=== PATIENT | female | born 1955 | race Caucasian/White ===

== ENCOUNTER 2020-04-06 15:32 | Outpatient (REF) | payer OTHER, SELFPAY ==
--- NOTE | 2020-04-06 | MM_ITS ---
EXAMINATION: MM SCREENING DIGITAL BREAST TOMOSYNTHESIS, BILATERAL CLINICAL INFORMATION: Screening. Asymptomatic. The lifetime risk of breast cancer based on the Tyrer-Cuzick Model is 4.8%. COMPARISON: Mammography: May 2018 and studies dating back to July 05, 2008 TECHNIQUE: Digital breast tomosynthesis is performed in both the craniocaudal and mediolateral oblique views along with computer-aided detection (CAD). Synthesized 2D images are generated from the tomosynthesis. FINDINGS: There are scattered areas of fibroglandular density (ACR BI-RADS breast composition Category b). There are no significant masses, abnormal calcifications, or other abnormalities. MM/MM tomosynthesis screening BI IMPRESSION: There are no significant changes from prior study. ASSESSMENT: BI-RADS 1: Negative RECOMMENDATION: Routine annual mammography screening. This patient's information was entered into a reminder system with a target due date for their next mammogram.
== END 2020-04-06 15:33 | disposition home or self-care (01) ==
LOC: HO.MAMMO 15:32
PROVIDERS: PCP Internal Medicine; Visit Provider Internal Medicine
DX: Z12.31 Encounter for screening mammogram for malignant neoplasm of breast (principal)
CPT/HCPCS: 77063; 77067

== ENCOUNTER 2020-08-21 09:39 | Outpatient (REF) | payer OTHER, SELFPAY ==
[2020-08-21 11:12] LABS: Hematocrit 38.4 % (37-47); Hemoglobin 12.2 g/dl (12.0-16.0); Mean Corpuscular HGB Conc 31.8 g/dl (31.0-35.0); Mean Corpuscular Hemoglobin 27.9 pg (27.0-33.0); Mean Corpuscular Volume 87.9 fL (80-98); Mean Platelet Volume 10.1 fL (9.4-12.3); Platelet Count 198 X10*3/uL (160-400); Red Blood Count 4.37 X10*6/uL (4.20-5.50); Red Cell Distribution Width 13.1 % (11.0-16.0); White Blood Count 5.5 X10*3/uL (4.8-10.8)
[2020-08-21 11:13] LABS: Glucose Urine UA NEG (NEG); Leukocyte Esterase Urine NEG (NEG); Nitrite Urine NEG (NEG); PH 5.5 (5.0-8.0); Specific Gravity - Urine >= 1.030 (1.005-1.025); Urine Blood NEG (NEG); Urine Ketones NEG (NEG); Urine Protein NEG (NEG-TRACE)
[2020-08-21 11:15] LABS: Appearance Urine CLEAR; Color Urine YELLOW
[2020-08-21 11:33] LABS: Calcium Oxalate Crystals Urine TRACE /LPF; RBC Urine 0 /HPF (0); Squamous Epithelial Cell Urine TRACE /LPF; WBC Urine 0 /HPF (0-4)
[2020-08-21 11:39] LABS: Estimated Average Glucose 148 mg/dL; Hemoglobin A1c % 6.8 %
[2020-08-21 12:09] LABS: Alanine Aminotransferase 26 U/L (0-31); Albumin Level 4.7 g/dL (3.5-5.0); Alkaline Phosphatase 60 U/L (39-117); Anion Gap 13 (12-20); Aspartate Amino Transferase 21 U/L (5-31); Bilirubin Total 0.3 mg/dL (0.0-1.0); Blood Urea Nitrogen 21 mg/dL (9-16); Calcium 9.6 mg/dL (8.4-10.2); Carbon Dioxide 28 mmol/L (22-29); Chloride 104 mmol/L (96-108); Cholesterol 261 mg/dL; Estimated Glomerular Filt Rate > 60; Glucose Fasting 144 mg/dL (60-99); HDL Cholesterol 46 mg/dL; LDL Cholesterol Calculated 175 mg/dl; Potassium 4.1 mmol/L (3.3-5.1); Sodium 141 mmol/L (135-145); TSH reflex Free T4 2.75 uIU/mL (0.32-4.0); Total Protein 7.2 g/dL (6.5-8.0); Triglycerides 203 mg/dL
[2020-08-21 12:15] LABS: Creatinine Urine 128.96 mg/dL; Microalbum/Creatinine Ratio Ur 11.6 ug/mg cr
== END 2020-08-21 09:40 | disposition home or self-care (01) ==
LOC: HO.HMGCLDS 09:39
PROVIDERS: PCP Internal Medicine; Visit Provider Internal Medicine
DX: E11.9 Type 2 diabetes mellitus without complications (principal); E78.5 Hyperlipidemia, unspecified
CPT/HCPCS: 36415; 80053; 80061; 81001; 82043; 83036; 84443; 85027

== ENCOUNTER 2021-04-09 13:29 | Outpatient (REF) | payer MEDICARE, SELFPAY ==
--- NOTE | ~2021-04-09 | MM_ITS ---
EXAMINATION: MM SCREENING DIGITAL BREAST TOMOSYNTHESIS, BILATERAL CLINICAL INFORMATION: Screening. Asymptomatic. The lifetime risk of breast cancer based on the Tyrer-Cuzick Model is 4%. COMPARISON: Mammography: 04/06/2020, 06/02/2018, 03/30/2015 TECHNIQUE: Digital breast tomosynthesis is performed in both the craniocaudal and mediolateral oblique views along with computer-aided detection (CAD). Synthesized 2D images are generated from the tomosynthesis. FINDINGS: There are scattered areas of fibroglandular density (ACR BI-RADS breast composition Category b). There are no significant masses, abnormal calcifications, or other abnormalities. Parenchymal pattern is similar to prior exams. No developing density. Skin contours are smooth. No significant changes. MM/MM tomosynthesis screening BI IMPRESSION: No mammographic evidence of malignancy. ASSESSMENT: BI-RADS 1: Negative RECOMMENDATION: Routine annual mammography screening. This patient's information was entered into a reminder system with a target due date for their next mammogram.
== END 2021-04-09 13:30 | disposition home or self-care (01) ==
LOC: HO.MAMMO 13:29
PROVIDERS: Visit Provider Internal Medicine
DX: Z12.31 Encounter for screening mammogram for malignant neoplasm of breast (principal)
CPT/HCPCS: 77063; 77067

== ENCOUNTER 2022-09-19 14:20 | Outpatient (REF) | payer MEDICARE, SELFPAY ==
--- NOTE | ~2022-09-19 | MM_ITS ---
EXAMINATION: MM SCREENING DIGITAL BREAST TOMOSYNTHESIS, BILATERAL CLINICAL INFORMATION: Screening. Asymptomatic. The lifetime risk of breast cancer based on the Tyrer-Cuzick Model is 3%. COMPARISON: Mammography: 04/09/2021, 04/06/2020, 06/02/2018 TECHNIQUE: Digital breast tomosynthesis is performed in both the craniocaudal and mediolateral oblique views along with computer-aided detection (CAD). Synthesized 2D images are generated from the tomosynthesis. FINDINGS: There are scattered areas of fibroglandular density (ACR BI-RADS breast composition Category b). There is nodular asymmetric density mid upper left breast on MLO view, suspect some contribution from summation artifact. Patient will be recalled for additional imaging. Remainder of the breasts is similar to prior studies. Tiny nodular asymmetry central left breast is similar to prior exams. There is no architectural abnormality. No abnormal calcifications. Some scattered ductal secretory calcifications in each breast is again demonstrated. The axilla and skin contours are unremarkable. MM/MM tomosynthesis screening BI IMPRESSION: Left: -Nodular asymmetric density mid upper breast on MLO view, suspect some contribution from summation artifact. Right: -No mammographic evidence of malignancy. ASSESSMENT: BI-RADS 0: Incomplete - Need Additional Imaging Evaluation RECOMMENDATION: 1. Additional views left breast (spot MLO, standard ML). 2. Targeted ultrasound if warranted after review of the additional views. 3. Radiology department staff will contact the patient for additional imaging. This patient's information was entered into a reminder system with a target due date for their next mammogram.
== END 2022-09-19 14:21 | disposition home or self-care (01) ==
LOC: HO.MAMMO 14:20
PROVIDERS: PCP Internal Medicine; Visit Provider Internal Medicine
DX: Z12.31 Encounter for screening mammogram for malignant neoplasm of breast (principal)
CPT/HCPCS: 77063; 77067

== ENCOUNTER 2022-10-23 12:42 | Outpatient (REF) | payer MEDICARE, SELFPAY ==
--- NOTE | ~2022-10-23 | MM_ITS ---
EXAMINATION: MM DIAGNOSTIC DIGITAL BREAST TOMOSYNTHESIS, LEFT CLINICAL INFORMATION: Recall from screening for nodular asymmetric density mid upper left breast on MLO view likely contribution from summation artifact. COMPARISON: Prior mammography exams including most recent 09/19/2022. TECHNIQUE: Digital breast tomosynthesis is performed. 2D images are generated from the tomosynthesis. The following views are obtained: Spot MLO, standard ML. FINDINGS: There are scattered areas of fibroglandular density (ACR BI-RADS breast composition Category b). Additional views show fibroglandular densities similar to prior studies. No interval mass or architectural abnormality or developing density. Results are discussed with the patient at time of visit. MM/MM tomosynthesis added views L IMPRESSION: No significant changes from prior studies. ASSESSMENT: BI-RADS 1: Negative RECOMMENDATION: Routine annual mammography screening. This patient's information was entered into a reminder system with a target due date for their next mammogram.
== END 2022-10-23 12:43 | disposition home or self-care (01) ==
LOC: HO.MAMMO 12:42
PROVIDERS: PCP Internal Medicine; Visit Provider Internal Medicine
DX: R92.2 Inconclusive mammogram (principal)
CPT/HCPCS: 77061; 77065

== ENCOUNTER 2022-11-06 09:50 | Outpatient (REF) | payer MEDICARE, SELFPAY ==
[2022-11-06 11:22] LABS: MANUAL DIFF FLAG NO
[2022-11-06 11:38] LABS: Basophils Absolute Auto 0.1 X10*3/uL (0.0-0.2); Basophils Percent Auto 1.2 % (0-2); Eosinophils Absolute Auto 0.3 X10*3/uL (0.0-0.4); Eosinophils Percent Auto 5.1 % (0-4); Hematocrit 37.7 % (37.0-47.0); Hemoglobin 12.2 g/dl (12.0-16.0); Imm Gran Abs Auto 0.01 X10*3/uL (0.00-0.03); Imm Gran Pct Auto 0.2 % (0.0-0.4); Lymphocytes Absolute Auto 2.1 X10*3/uL (1.2-4.9); Lymphocytes Percent Auto 40.9 % (20-40); Mean Corpuscular HGB Conc 32.4 g/dl (31.0-35.0); Mean Corpuscular Hemoglobin 28.2 pg (27.0-33.0); Mean Corpuscular Volume 87.1 fL (80.0-98.0); Mean Platelet Volume 10.4 fL (9.4-12.3); Monocytes Absolute Auto 0.4 X10*3/uL (0.1-1.2); Monocytes Percent Auto 8.3 % (2-11); Neutrophils Absolute Auto 2.2 x10*3/uL (2.0-8.3); Neutrophils Percent Auto 44.3 % (45-73); Platelet Count 217 X10*3/uL (160-400); Red Blood Count 4.33 X10*6/uL (4.20-5.50); Red Cell Distribution Width 13.1 % (11.0-16.0); White Blood Count 5.1 X10*3/uL (4.8-10.8)
[2022-11-06 11:52] LABS: Estimated Average Glucose 134 mg/dL; Hemoglobin A1C 152.5559 umol/L; Hemoglobin A1c % 6.3 %
[2022-11-06 12:05] LABS: Alanine Aminotransferase 15 U/L (0-31); Albumin Level 4.4 g/dL (3.5-5.0); Alkaline Phosphatase 57 U/L (39-117); Anion Gap 9 (12-20); Aspartate Amino Transferase 18 U/L (5-31); Bilirubin Total 0.6 mg/dL (0.0-1.0); Blood Urea Nitrogen 14 mg/dL (9-16); Calcium 9.8 mg/dL (8.4-10.2); Carbon Dioxide 30 mmol/L (22-29); Chloride 105 mmol/L (96-108); Cholesterol 224 mg/dL; Estimated Glomerular Filt Rate > 60; Glucose Fasting 121 mg/dL (60-99); HDL Cholesterol 39 mg/dL; LDL Cholesterol Calculated 156 mg/dl; Potassium 4.4 mmol/L (3.3-5.1); Sodium 140 mmol/L (135-145); Total Protein 7.3 g/dL (6.5-8.0); Triglycerides 145 mg/dL
[2022-11-06 12:52] LABS: Creatinine Urine 189.48 mg/dL; Microalbum/Creatinine Ratio Ur 7.3 ug/mg cr
== END 2022-11-06 09:51 | disposition home or self-care (01) ==
LOC: HO.HMGCLDS 09:50
PROVIDERS: PCP Internal Medicine; Visit Provider Internal Medicine
DX: E11.9 Type 2 diabetes mellitus without complications (principal); E78.5 Hyperlipidemia, unspecified
CPT/HCPCS: 36415; 80053; 80061; 82043; 83036; 84443; 85025

== ENCOUNTER 2023-02-24 12:18 | Outpatient (AMB) | payer MEDICARE, SELFPAY ==
[2023-02-24 12:28] VITALS: BP 124/72; PULSE 77; O2SAT 98; BMI 29.4
--- NOTE | 2023-02-24 12:28 | A.OFFPC_ITS ---
Vital Signs 02/24/23 12:28 Height 5 ft 2.2 in Weight 162 lb BMI 29.4 BP 124/72 Blood Pressure Location Lt brachial Position Sitting Pulse 77 Pulse Source Pulse Oximeter Pulse Oximetry (%) 98 Oxygen Delivery Method Room Air Intake Visit Reasons: 4 month follow up Intake Note: Pt is here today for 4 months follow up visit. Allergies atorvastatin Adverse Reaction (Unknown, Verified 02/24/23 12:33) Myalgia rosuvastatin [Crestor] Adverse Reaction (Unknown, Verified 02/24/23 12:33) Myalgia Medication List - Last Reconciled 02/24/23 by Amber Fabian MD blood sugar diagnostic (FreeStyle Lite Strips) test blood sugar once a day lancets (OneTouch Delica Lancets) test blood sugar once a day metformin 1,000 mg (2 x 500 mg) PO BID OneTouch Ultra Test (blood sugar diagnostic) test blood sugar once a day NS OneTouch Ultra2 Meter (blood-glucose meter) As directed to test blood sugars NS rosuvastatin (Crestor) 10 mg PO DAILY Tobacco use date assessed: 02/24/23 Dental Screening Dental Screen Date: 02/24/23 Did you have a dental visit in the last 12 months?: Yes Did you have a dental problem in the last 6 months where you did not have access to dental care?: No Was dental information given to patient?: Patient has dentist HPI 4 month follow up HPI Details Patient presents for the follow-up of type 2 diabetes and hyperlipidemia. Patient reports fasting blood glucose improved since she started taking fiber supplement [facility] Medical History (Updated 02/24/23 @ 13:07 by Amber Fabian MD) Mammogram normal Annual physical exam Anxiety Hyperlipidemia Type 2 diabetes mellitus Surgical History S/P hysterectomy H/O colonoscopy Family History Father No problems noted. Mother No problems noted. Social History Housing: House Patient Tobacco Use Status: Never used Tobacco e-Cigarette/Vaping Use: Never Used Current occupational status: retired Cognitive needs: No Hearing needs: No Vision needs: Yes Questionnaire Thrive Questionnaire Date Thrive assessed: 11/06/22 GISSEL-7 AMB Questionnaire GISSEL-7 Date GISSEL - 7 assessed: 11/06/22 Source: Developed by Drs. Malik Kerr, Gwendolyn Aguero, Randy Lewis and colleagues, with an educational nadine from [employer]. Review of Systems Const All systems reviewed & are unremarkable except as noted in HPI and below Reports no additional complaints Eyes Reports no additional complaints Card Reports no additional complaints Resp Reports no additional complaints GI Reports no additional complaints Physical exam (Primary Care) Vital Signs: Last Vital Signs Pulse 77 02/24/23 12:28 BP 124/72 02/24/23 12:28 Pulse Ox 98 02/24/23 12:28 Oxygen Delivery Method Room Air 02/24/23 12:28 BMI result Body Mass Index 29.4 Tobacco/Smoking Status: Tobacco use Status Tobacco use date assessed 02/24/23 02/24/23 12:34 Patient Tobacco Use Status Never used Tobacco 02/24/23 12:34 e-Cigarette/Vaping Use Never Used 02/24/23 12:34 Thrive Assessment: Date of Thrive Assessment Date Thrive assessed 11/06/22 02/24/23 12:34 Const General: no acute distress Neck Neck: Yes supple Resp Effort & Inspection: normal respiratory effort Auscultation: clear to auscultation bilaterally Cardio Rate: regular rate Rhythm: regular rhythm Heart sounds: S1 normal heart sound present and S2 normal heart sound present GI Inspection: Yes normal to inspection Assessment and Plan Assessment & Plan (1) Type 2 diabetes mellitus: Comment: A1C less than 7 Code(s): E11.9 - Type 2 diabetes mellitus without complications Plan: check labs today, cont ADA diet, exercise (2) Hyperlipidemia: Code(s): E78.5 - Hyperlipidemia, unspecified Plan: cont statin (3) Annual physical exam: Code(s): Z00.00 - Encounter for general adult medical examination without abnormal findings (4) Mammogram normal: Comment: [facility] 2022 Orders: Orders Comprehensive [place]. Panel Fast 4 Months E11.9 - Type 2 diabetes mellitus without complications, E78.5 - Hyperlipidemia, unspecified, Z00.00 - Encounter for general adult medical examination without abnormal findings Complete Blood Count Auto Diff 4 Months E11.9 - Type 2 diabetes mellitus without complications, E78.5 - Hyperlipidemia, unspecified, Z00.00 - Encounter for general adult medical examination without abnormal findings Hemoglobin A1c 4 Months E11.9 - Type 2 diabetes mellitus without complications, E78.5 - Hyperlipidemia, unspecified, Z00.00 - Encounter for general adult medical examination without abnormal findings Lipid Panel 4 Months E11.9 - Type 2 diabetes mellitus without complications, E78.5 - Hyperlipidemia, unspecified, Z00.00 - Encounter for general adult medical examination without abnormal findings Microalbumin, Random (w Creat) 4 Months E11.9 - Type 2 diabetes mellitus without complications, E78.5 - Hyperlipidemia, unspecified, Z00.00 - Encounter for general adult medical examination without abnormal findings Coding Level of Care Code Est Pt Level 3 (59821) Diagnoses Type 2 diabetes mellitus E11.9 Hyperlipidemia E78.5 Annual physical exam Z00.00 Mammogram normal
== END 2023-02-24 13:01 | disposition home or self-care (01) ==
PROVIDERS: PCP Internal Medicine; Visit Provider Internal Medicine
DX: E11.9 Type 2 diabetes mellitus without complications (principal); E78.5 Hyperlipidemia, unspecified; Z00.00 Encounter for general adult medical examination without abnormal findings
CPT/HCPCS: 99213

== ENCOUNTER 2023-02-24 13:05 | Outpatient (REF) | payer MEDICARE, SELFPAY ==
[2023-02-24 16:12] LABS: Estimated Average Glucose 140 mg/dL; Hemoglobin A1c % 6.5 % (<6.0)
[2023-02-24 16:17] LABS: Alanine Aminotransferase 19 U/L (0-31); Albumin Level 4.5 g/dL (3.5-5.0); Alkaline Phosphatase 64 U/L (39-117); Anion Gap 14 (12-20); Aspartate Amino Transferase 20 U/L (5-31); Bilirubin Total 0.4 mg/dL (0.0-1.0); Blood Urea Nitrogen 9 mg/dL (9-16); Calcium 9.6 mg/dL (8.4-10.2); Carbon Dioxide 26 mmol/L (22-29); Chloride 103 mmol/L (96-108); Cholesterol 197 mg/dL (<200); Estimated Glomerular Filt Rate > 60; Glucose Fasting 101 mg/dL (60-99); HDL Cholesterol 42 mg/dL (>40); LDL Cholesterol Calculated 129 mg/dL (<100); Potassium 3.9 mmol/L (3.3-5.1); Sodium 139 mmol/L (135-145); Total Protein 7.4 g/dL (6.5-8.0); Triglycerides 132 mg/dL (<150)
[2023-02-24 16:57] LABS: Creatinine Urine 36.16 mg/dL; Microalbumin Urine < 5.0 mg/L
== END 2023-02-24 13:06 | disposition home or self-care (01) ==
LOC: HO.HMGCLDS 13:05
PROVIDERS: PCP Internal Medicine; Visit Provider Internal Medicine
DX: E11.9 Type 2 diabetes mellitus without complications (principal); E78.5 Hyperlipidemia, unspecified
CPT/HCPCS: 36415; 80053; 80061; 82043; 82570; 83036

== ENCOUNTER 2023-06-25 09:39 | Outpatient (REF) | payer MEDICARE, SELFPAY ==
[2023-06-25 11:29] LABS: MANUAL DIFF FLAG NO
[2023-06-25 11:51] LABS: Eosinophils Absolute Auto 0.1 X10*3/uL (0.0-0.4); Eosinophils Percent Auto 3.6 % (0-4); Hematocrit 36.9 % (37.0-47.0); Hemoglobin 11.9 g/dl (12.0-16.0); Imm Gran Abs Auto 0.01 X10*3/uL (0.00-0.03); Imm Gran Pct Auto 0.3 % (0.0-0.4); Lymphocytes Absolute Auto 1.5 X10*3/uL (1.2-4.9); Lymphocytes Percent Auto 37.8 % (20-40); Mean Corpuscular HGB Conc 32.2 g/dl (31.0-35.0); Mean Corpuscular Hemoglobin 27.8 pg (27.0-33.0); Mean Corpuscular Volume 86.2 fL (80.0-98.0); Mean Platelet Volume 10.2 fL (9.4-12.3); Monocytes Absolute Auto 0.3 X10*3/uL (0.1-1.2); Monocytes Percent Auto 8.4 % (2-11); Neutrophils Absolute Auto 1.9 x10*3/uL (2.0-8.3); Neutrophils Percent Auto 48.9 % (45-73); Platelet Count 197 X10*3/uL (160-400); Red Blood Count 4.28 X10*6/uL (4.20-5.50); Red Cell Distribution Width 13.5 % (11.0-16.0); White Blood Count 3.9 X10*3/uL (4.8-10.8)
[2023-06-25 12:02] LABS: Estimated Average Glucose 143 mg/dL; Hemoglobin A1C 149.8671 umol/L; Hemoglobin A1c % 6.6 % (<6.0)
[2023-06-25 12:22] LABS: Alanine Aminotransferase 17 U/L (0-31); Albumin Level 4.3 g/dL (3.5-5.0); Alkaline Phosphatase 59 U/L (39-117); Anion Gap 11 (12-20); Aspartate Amino Transferase 17 U/L (5-31); Bilirubin Total 0.4 mg/dL (0.0-1.0); Blood Urea Nitrogen 12 mg/dL (9-16); Calcium 9.3 mg/dL (8.4-10.2); Carbon Dioxide 28 mmol/L (22-29); Chloride 105 mmol/L (96-108); Cholesterol 241 mg/dL (<200); Estimated Glomerular Filt Rate > 60; Glucose Fasting 132 mg/dL (60-99); HDL Cholesterol 35 mg/dL (>40); LDL Cholesterol Calculated 176 mg/dL (<100); Potassium 4.3 mmol/L (3.3-5.1); Sodium 140 mmol/L (135-145); Total Protein 7.1 g/dL (6.5-8.0); Triglycerides 152 mg/dL (<150)
[2023-06-25 12:33] LABS: Creatinine Urine 144.76 mg/dL; Microalbum/Creatinine Ratio Ur 9.6 ug/mg cr (<30)
== END 2023-06-25 09:40 | disposition home or self-care (01) ==
LOC: HO.HMGCLDS 09:39
PROVIDERS: PCP Internal Medicine; Visit Provider Internal Medicine
DX: Z00.00 Encounter for general adult medical examination without abnormal findings (principal); E78.5 Hyperlipidemia, unspecified; E11.9 Type 2 diabetes mellitus without complications
CPT/HCPCS: 36415; 80053; 80061; 82043; 82570; 83036; 85025

== ENCOUNTER 2023-06-30 10:13 | Outpatient (AMB) | payer MEDICARE, SELFPAY ==
--- NOTE | 2023-06-30 10:24 | A.OFFPC_ITS ---
Vital Signs 06/30/23 10:25 Height 5 ft 2.2 in Weight 164 lb BMI 29.8 BP 132/76 Blood Pressure Location Lt brachial Position Sitting Pulse 84 Pulse Source Pulse Oximeter Pulse Oximetry (%) 96 Oxygen Delivery Method Room Air Intake Visit Reasons: 4 month follow up Intake Note: Pt is here today for 4 months follow up visit. Allergies atorvastatin Adverse Reaction (Unknown, Verified 06/30/23 10:25) Myalgia rosuvastatin [Crestor] Adverse Reaction (Unknown, Verified 06/30/23 10:25) Myalgia Medication List - Last Reconciled 06/30/23 by Amber Fabian MD blood sugar diagnostic (FreeStyle Lite Strips) test blood sugar once a day empagliflozin (Jardiance) 10 mg PO DAILY lancets (OneTouch Delica Lancets) test blood sugar once a day metformin 1,000 mg (2 x 500 mg) PO BID OneTouch Ultra Test (blood sugar diagnostic) test blood sugar once a day NS OneTouch Ultra2 Meter (blood-glucose meter) As directed to test blood sugars NS rosuvastatin (Crestor) 10 mg PO DAILY Tobacco use date assessed: 06/30/23 Fall risk assessment: No Falls in past year Last assessed Fall Risk: 06/30/23 Dental Screening Dental Screen Date: 06/30/23 Did you have a dental visit in the last 12 months?: Yes Did you have a dental problem in the last 6 months where you did not have access to dental care?: No Was dental information given to patient?: Patient has dentist HPI 4 month follow up HPI Details Pt presents for DM 2 and hyperlipid. Pt has not been taking Crestor, because of bodyaches. [facility] Medical History (Updated 06/30/23 @ 11:08 by Amber Fabian MD) Mammogram normal Annual physical exam Anxiety Hyperlipidemia Type 2 diabetes mellitus Surgical History S/P hysterectomy H/O colonoscopy Family History Father No problems noted. Mother No problems noted. Social History Housing: House Patient Tobacco Use Status: Never used Tobacco e-Cigarette/Vaping Use: Never Used Current occupational status: retired Cognitive needs: No Hearing needs: No Vision needs: Yes Questionnaire PHQ-9 Over the last 2 weeks, how often have you been bothered by any of the following problems? 1. Little interest or pleasure in doing things: not at all 2. Feeling down, depressed, or hopeless: not at all 3. Trouble falling or staying asleep, or sleeping too much: not at all 4. Feeling tired or having little energy: not at all 5. Poor appetite or overeating: not at all 6. Feeling bad about yourself - or that you are a failure or have let yourself or your family down: not at all 7. Trouble concentrating on things, such as reading the newspaper or watching television: not at all 8. Moving or speaking so slowly that other people could have noticed. Or the opposite - being so fidgety or restless that you have been moving around a lot more than usual: not at all 9. Thoughts that you would be better off or of hurting yourself in some way: not at all Total score: 0 Depression Screening Interpretation: Negative Depression Screening Done: Yes Source: Developed by Drs. Malik Kerr, Gwendolyn Aguero, Randy Lewis and colleagues, with an educational nadine from [employer]. Thrive Questionnaire Date Thrive assessed: 06/30/23 I am a: Patient What is your living situation today?: I have a steady place to live Within the past 12 months, did the food you bought not last and you didn't have the money to get more?: Never true Within the past 12 months, did you worry whether your food would run out before you got money to buy more?: Never true Do you have trouble paying for medicines?: No Do you have trouble getting transportation to medical appointments?: No Do you have trouble paying your heating and electricity bill?: No Do you have trouble taking care of your child, family member or friend?: No Are you currently unemployed and looking for a job?: No Are you interested in more education?: No Please select the resources that you would like help with: None Currently or been in a relationship where the following occur: no concerns reported THRIVE Score: 0 AUDIT C Alcohol Use Questionnaire (AUDIT-C) 1. How often do you have a drink containing alcohol?: Never 3. How often do you have six or more drinks on one occasion?: Never Total Score: 0 GISSEL-7 AMB Questionnaire GISSEL-7 Date GISSEL - 7 assessed: 06/30/23 Feeling nervous, anxious, or on edge: 0 = Not at all Not being able to stop or control worryin = Not at all Worrying too much about different things: 0 = Not at all Trouble relaxin = Not at all Being so restless that it is hard to sit still: 0 = Not at all Becoming easily annoyed or irritable: 0 = Not at all Feeling afraid as if something awful might happen: 0 = Not at all Total GISSEL-7 score (0-4 normal; 5-9 mild; 10-14 moderate; 15-21 severe): 0 Source: Developed by Drs. Malik Kerr, Gwendolyn Aguero, Randy Lewis and colleagues, with an educational nadine from [employer]. Review of Systems Const All systems reviewed & are unremarkable except as noted in HPI and below Reports no additional complaints Eyes Reports no additional complaints ENT Reports no additional complaints Card Reports no additional complaints Resp Reports no additional complaints GI Reports no additional complaints Reports no additional complaints Physical exam (Primary Care) Vital Signs: Last Vital Signs Pulse 84 06/30/23 10:25 BP 132/76 06/30/23 10:25 Pulse Ox 96 06/30/23 10:25 Oxygen Delivery Method Room Air 06/30/23 10:25 BMI result Body Mass Index 29.8 Tobacco/Smoking Status: Tobacco use Status Tobacco use date assessed 06/30/23 06/30/23 10:31 Patient Tobacco Use Status Never used Tobacco 06/30/23 10:31 e-Cigarette/Vaping Use Never Used 06/30/23 10:25 PHQ-9: PHQ-9 Score PHQ-9: Total score 0 06/30/23 10:31 Depression Screening Interpretation: Negative Thrive Assessment: Date of Thrive Assessment Date Thrive assessed 06/30/23 06/30/23 10:31 Currently or been in a relationship where the following occur: no concerns reported HENMT Head: Yes normal to inspection Ears: hearing grossly normal bilaterally Face and sinus: Yes normal facial exam Neck Neck: Yes no lymphadenopathy and Yes supple Resp Effort & Inspection: normal respiratory effort Auscultation: clear to auscultation bilaterally Cardio Rhythm: regular rhythm Heart sounds: S1 normal heart sound present and S2 normal heart sound present GI Inspection: Yes normal to inspection Palpation (GI): Soft to palpation Percussion: Yes normal to percussion Auscultation: normal bowel sounds Assessment and Plan Assessment & Plan (1) Type 2 diabetes mellitus: Comment: A1C less than 7 Code(s): E11.9 - Type 2 diabetes mellitus without complications Plan: A1c is 6.6, ADA diet increase exercise weight loss discussed with the patient. Jardiance 10 mg will be added to metformin. Follow-up in 3 months with a fasting labs before (2) Hyperlipidemia: Code(s): E78.5 - Hyperlipidemia, unspecified Plan: Patient was advised to restart statin was CO Q10 if she has persistent body aches . Repatha or Praluent will be tried (3) Elevated blood pressure reading: Code(s): R03.0 - Elevated blood-pressure reading, without diagnosis of hypertension Plan: Low-sodium diet increase exercise weight loss discussed with the patient. Follow-up in 3 months to monitor blood pressure Orders: Orders Hemoglobin A1c 3 Months E11.9 - Type 2 diabetes mellitus without complications, E78.5 - Hyperlipidemia, unspecified Lipid Panel 3 Months E11.9 - Type 2 diabetes mellitus without complications, E78.5 - Hyperlipidemia, unspecified TSH reflex Free T4 3 Months E11.9 - Type 2 diabetes mellitus without complications, E78.5 - Hyperlipidemia, unspecified Comprehensive [place]. Panel Fast 3 Months E11.9 - Type 2 diabetes mellitus without complications, E78.5 - Hyperlipidemia, unspecified Microalbumin, Random (w Creat) 3 Months E11.9 - Type 2 diabetes mellitus without complications, E78.5 - Hyperlipidemia, unspecified Referrals Gastroenterology Referral Z00.00 - Encounter for general adult medical examination without abnormal findings Medications: New empagliflozin (Jardiance) 10 mg PO DAILY 90 tabs 2RF Coding Level of Care Code Est Pt Level 4 (15488) Diagnoses Type 2 diabetes mellitus E11.9 Hyperlipidemia E78.5 Elevated blood pressure reading R03.0
[2023-06-30 10:25] VITALS: BP 132/76; PULSE 84; O2SAT 96; BMI 29.8
== END 2023-06-30 11:05 | disposition home or self-care (01) ==
PROVIDERS: PCP Internal Medicine; Visit Provider Internal Medicine
DX: E11.9 Type 2 diabetes mellitus without complications (principal); E78.5 Hyperlipidemia, unspecified; R03.0 Elevated blood-pressure reading, without diagnosis of hypertension
CPT/HCPCS: 99214

== ENCOUNTER 2023-11-20 09:07 | Outpatient (REF) | payer MEDICARE, SELFPAY ==
[2023-11-20 11:57] LABS: Estimated Average Glucose 137 mg/dL; Hemoglobin A1c % 6.4 % (<6.0)
[2023-11-20 12:11] LABS: Alanine Aminotransferase 14 U/L (0-31); Albumin Level 4.3 g/dL (3.5-5.0); Alkaline Phosphatase 62 U/L (39-117); Anion Gap 13 (12-20); Aspartate Amino Transferase 16 U/L (5-31); Bilirubin Total 0.4 mg/dL (0.0-1.0); Blood Urea Nitrogen 11 mg/dL (9-16); Calcium 9.7 mg/dL (8.4-10.2); Carbon Dioxide 27 mmol/L (22-29); Chloride 105 mmol/L (96-108); Cholesterol 232 mg/dL (<200); Estimated Glomerular Filt Rate > 60; Glucose Fasting 108 mg/dL (60-99); HDL Cholesterol 39 mg/dL (>40); LDL Cholesterol Calculated 161 mg/dL (<100); Potassium 4.4 mmol/L (3.3-5.1); Sodium 141 mmol/L (135-145); Total Protein 7.1 g/dL (6.5-8.0); Triglycerides 162 mg/dL (<150)
[2023-11-20 12:32] LABS: TSH reflex Free T4 3.06 uIU/mL (0.32-4.0)
[2023-11-20 12:37] LABS: Creatinine Urine 111.44 mg/dL; Microalbum/Creatinine Ratio Ur 6.2 ug/mg cr (<30)
== END 2023-11-20 09:08 | disposition home or self-care (01) ==
LOC: HO.HMGCLDS 09:07
PROVIDERS: PCP Internal Medicine; Visit Provider Internal Medicine
DX: E11.9 Type 2 diabetes mellitus without complications (principal); E78.5 Hyperlipidemia, unspecified
CPT/HCPCS: 36415; 80053; 80061; 82043; 82570; 83036; 84443

== ENCOUNTER 2023-11-25 10:56 | Outpatient (AMB) | payer MEDICARE, SELFPAY ==
[2023-11-25 11:12] VITALS: BP 116/70; PULSE 74; O2SAT 97; BMI 28.9
--- NOTE | 2023-11-25 11:12 | A.OFFPC_ITS ---
Vital Signs 11/25/23 11:12 Height 5 ft 2.2 in Weight 159 lb BMI 28.9 BP 116/70 Blood Pressure Location Rt brachial Position Sitting Pulse 74 Pulse Source Pulse Oximeter Pulse Oximetry (%) 97 Oxygen Delivery Method Room Air Intake Visit Reasons: Annual PE Intake Note: pt is here for annual PE. Mammogram 10/23/22 Allergies atorvastatin Adverse Reaction (Unknown, Verified 11/25/23 11:41) Myalgia rosuvastatin [Crestor] Adverse Reaction (Unknown, Verified 11/25/23 11:41) Myalgia Medication List - Last Reconciled 11/25/23 by Amber Fabian MD blood sugar diagnostic (FreeStyle Lite Strips) test blood sugar once a day empagliflozin (Jardiance) 10 mg PO DAILY lancets (OneTouch Delica Lancets) test blood sugar once a day metformin 1,000 mg (2 x 500 mg) PO BID OneTouch Ultra Test (blood sugar diagnostic) test blood sugar once a day NS OneTouch Ultra2 Meter (blood-glucose meter) As directed to test blood sugars NS Tobacco use date assessed: 11/25/23 Fall risk assessment: No Falls in past year Dental Screening Dental Screen Date: 11/25/23 Did you have a dental visit in the last 12 months?: Yes Did you have a dental problem in the last 6 months where you did not have access to dental care?: No Was dental information given to patient?: Patient has dentist HPI Annual PE HPI Details Pt presents for PE. PFSH Medical History Mammogram normal Annual physical exam Anxiety Hyperlipidemia Type 2 diabetes mellitus Surgical History S/P hysterectomy H/O colonoscopy Family History Father No problems noted. Mother No problems noted. Social History Housing: House Patient Tobacco Use Status: Never used Tobacco e-Cigarette/Vaping Use: Never Used service: No Current occupational status: retired Cognitive needs: No Hearing needs: No Vision needs: Yes Questionnaire Thrive Questionnaire Date Thrive assessed: 06/30/23 GISSEL-7 AMB Questionnaire GISSEL-7 Date GISSEL - 7 assessed: 06/30/23 Source: Developed by DrsPhyllis Kerr, Gwendolyn Aguero, Randy Lewis and colleagues, with an educational nadine from [employer]. Review of Systems Const All systems reviewed & are unremarkable except as noted in HPI and below Reports no additional complaints Eyes Reports no additional complaints ENT Reports no additional complaints Card Reports no additional complaints Resp Reports no additional complaints GI Reports no additional complaints Reports no additional complaints Musc Reports no additional complaints Physical exam (Primary Care) Vital Signs: Last Vital Signs Pulse 74 11/25/23 11:12 BP 116/70 11/25/23 11:12 Pulse Ox 97 11/25/23 11:12 Oxygen Delivery Method Room Air 11/25/23 11:12 BMI result Body Mass Index 28.9 Tobacco/Smoking Status: Tobacco use Status Tobacco use date assessed 11/25/23 11/25/23 11:41 Patient Tobacco Use Status Never used Tobacco 11/25/23 11:12 e-Cigarette/Vaping Use Never Used 11/25/23 11:12 Thrive Assessment: Date of Thrive Assessment Date Thrive assessed 06/30/23 11/25/23 11:12 Const General: no acute distress HENMT Head: Yes normal to inspection Face and sinus: Yes normal facial exam Mouth: Normal oral and palatal mucosa present Throat: Yes posterior oropharynx normal Eyes General: appearance normal, both eyes and all related structures Neck Neck: Yes supple Resp Effort & Inspection: normal respiratory effort Auscultation: clear to auscultation bilaterally Cardio Rhythm: regular rhythm Heart sounds: S1 normal heart sound present and S2 normal heart sound present GI Inspection: Yes normal to inspection Palpation (GI): Soft to palpation Percussion: Yes normal to percussion Auscultation: normal bowel sounds Assessment and Plan Assessment & Plan (1) Type 2 diabetes mellitus: Comment: A1C less than 7 Code(s): E11.9 - Type 2 diabetes mellitus without complications Plan: A1C 6.4, stable on meds, cont ADA (2) Hyperlipidemia: Comment: Intolerant to atorvastatin and crestor Code(s): E78.5 - Hyperlipidemia, unspecified Plan: Try Zetia and continue low-cholesterol diet (3) Annual physical exam: Code(s): Z00.00 - Encounter for general adult medical examination without abnormal findings Plan: Well-balanced diet regular exercise discussed with the patient Orders: Orders Vitamin B12 and Folate 4 Months D64.9 - Anemia, unspecified, E11.9 - Type 2 diabetes mellitus without complications, Z00.00 - Encounter for general adult medical examination without abnormal findings Hemoglobin A1c 4 Months D64.9 - Anemia, unspecified, E11.9 - Type 2 diabetes mellitus without complications, Z00.00 - Encounter for general adult medical examination without abnormal findings Comprehensive [place]. Panel Fast 4 Months D64.9 - Anemia, unspecified, E11.9 - Type 2 diabetes mellitus without complications, Z00.00 - Encounter for general adult medical examination without abnormal findings Lipid Panel 4 Months D64.9 - Anemia, unspecified, E11.9 - Type 2 diabetes me llitus without complications, Z00.00 - Encounter for general adult medical examination without abnormal findings Complete Blood Count Auto Diff 4 Months D64.9 - Anemia, unspecified, E11.9 - Type 2 diabetes mellitus without complications, Z00.00 - Encounter for general adult medical examination without abnormal findings Microalbumin, Random (w Creat) 4 Months D64.9 - Anemia, unspecified, E11.9 - Type 2 diabetes mellitus without complications, Z00.00 - Encounter for general adult medical examination without abnormal findings IRON PROFILE 4 Months D64.9 - Anemia, unspecified, E11.9 - Type 2 diabetes mellitus without complications, Z00.00 - Encounter for general adult medical examination without abnormal findings Medications: New ezetimibe (Zetia) 10 mg PO DAILY 90 tabs 3RF Discontinued empagliflozin (Jardiance) Discontinued Reason: Doctor's Order 10 mg PO DAILY 90 tabs 2RF Coding Level of Care Code Est Pt Prev Care >65y(58525) Diagnoses Type 2 diabetes mellitus E11.9 Hyperlipidemia E78.5 Annual physical exam Z00.00
== END 2023-11-25 12:10 | disposition home or self-care (01) ==
PROVIDERS: PCP Internal Medicine; Visit Provider Internal Medicine
DX: E11.9 Type 2 diabetes mellitus without complications (principal); E78.5 Hyperlipidemia, unspecified; Z00.00 Encounter for general adult medical examination without abnormal findings
CPT/HCPCS: 99397

== ENCOUNTER 2024-01-30 13:22 | Outpatient (REF) | payer MEDICARE, SELFPAY ==
--- NOTE | ~2024-01-30 | MM_ITS ---
EXAMINATION: MM SCREENING DIGITAL BREAST TOMOSYNTHESIS, BILATERAL CLINICAL INFORMATION: Screening. Asymptomatic. COMPARISON: Mammography: Comparison is made with available priors TECHNIQUE: Digital breast mammography with tomosynthesis is performed in both the craniocaudal and mediolateral oblique views along with computer-aided detection (CAD). FINDINGS: There are scattered areas of fibroglandular density (ACR BI-RADS breast composition Category b). There are no significant masses, abnormal calcifications, or other abnormalities. MM/MM tomosynthesis screening BI IMPRESSION: No mammographic evidence of malignancy. ASSESSMENT: BI-RADS BI-RADS 1 - Negative RECOMMENDATION: Routine annual mammography screening. 1 year F/U This examination should not preclude the clinical evaluation of a suspicious palpable abnormality. This patient's information was entered into a reminder system with a target due date for their next mammogram. Electronically signed by: Sharla Saenz DO 02/15/2024 06:41 PM EDT
== END 2024-01-30 13:23 | disposition home or self-care (01) ==
LOC: HO.MAMMO 13:22
PROVIDERS: PCP Internal Medicine; Visit Provider Internal Medicine
DX: Z12.31 Encounter for screening mammogram for malignant neoplasm of breast (principal)
CPT/HCPCS: 77063; 77067

== ENCOUNTER → 2024-01-30 13:45 | Outpatient (BNV) | payer MEDICARE, SELFPAY | PROVIDERS: PCP Internal Medicine; Visit Provider Internal Medicine | DX: Z12.31 Encounter for screening mammogram for malignant neoplasm of breast (principal) | CPT/HCPCS: 77063; 77067 ==

== ENCOUNTER 2024-02-25 08:13 | Outpatient (AMB) | payer MEDICARE, SELFPAY ==
[2024-02-25 08:25] VITALS: BP 144/74; PULSE 68; O2SAT 97; BMI 29.8
--- NOTE | 2024-02-25 08:25 | MHC.OFFVIS ---
Vital Signs 02/25/24 08:25 Height 5 ft 2 in Weight 163 lb 2.273 oz BMI 29.8 BP 144/74 H Blood Pressure Location Lt brachial Position Sitting Pulse 68 Pulse Source Pulse Oximeter Pulse Oximetry (%) 97 Oxygen Delivery Method Room Air Intake Visit Reasons: Hyperlipidemia, Consult for Colonoscopy Intake Note: Mildred presents in office today for a scheduled colo consult. CC; Notes from PCP include reference to hyperlipidemia. This is a recall colo per PCP note. Pt had previous colo with Dr. Gardiner out of [place]. Pt denies any new concerns or sx at this time. Pt reports that this is purely for recall purposes. Script Reader Required: No Allergies atorvastatin Adverse Reaction (Unknown, Verified 02/25/24 08:27) Myalgia rosuvastatin [Crestor] Adverse Reaction (Unknown, Verified 02/25/24 08:27) Myalgia HPI HPI Hyperlipidemia, Consult for Colonoscopy: Details: 68 year old? female with past medical history of diabetes, hyperlipidemia is here today for pre colonoscopy screening.? Patient was sent to us by her PCP.?? Last colonoscopy in 2011, no polyps found. Patient denies any gastrointestinal symptoms in the past or at present.? Denies any personal or family history of gastrointestinal disease, colon polyps, or CRC.? Denies history of difficulty with sedation or anesthesia in the past.? Negative for history of sleep apnea.? Denies any history of cardiac, renal, pulmonary, or hepatic disease.?? No history of infectious? diseases like hepatitis A, B, C, HIV or tuberculosis.? Patient is not on any anticoagulation [facility] Medical History Mammogram normal Annual physical exam Anxiety Hyperlipidemia Type 2 diabetes mellitus Surgical History S/P hysterectomy H/O colonoscopy Family History Father No problems noted. Mother No problems noted. Social History Housing: House Patient Tobacco Use Status: Never used Tobacco e-Cigarette/Vaping Use: Never Used service: No Current occupational status: retired Cognitive needs: No Hearing needs: No Vision needs: Yes Review of Systems Const Denies weight gain and Denies weight loss ENT Reports no additional complaints, Denies dysphagia and Denies odynophagia Card Reports no additional complaints Resp Reports no additional complaints GI Denies abdominal pain, Denies belching, Denies melena, Denies bloating, Denies change in bowel habits, Denies dysphagia, Denies excessive flatus, Denies dyspepsia, Denies heartburn, Denies diarrhea, Denies loose stools, Denies nausea, Denies odynophagia and Denies vomiting Musc Reports no additional complaints Neuro Reports no additional complaints Psych Reports no additional complaints Endo Reports no additional complaints Physical Exam Const General: healthy appearing, no acute distress and well developed Nutritional Appearance: well nourished Orientation/consciousness: patient oriented x3 Resp Effort & Inspection: normal respiratory effort, able to speak in complete sentences, no tracheal deviation and symmetric chest movement Auscultation: clear to auscultation bilaterally Cardio Rate: regular rate GI Inspection: Yes normal to inspection and No distended Palpation (GI): Soft to palpation, not firm, nontender and No hepatosplenomegaly present Auscultation: normal bowel sounds General: Yes no CVA tenderness Back/Spine/Pelvis Back: no CVA tenderness Skin General skin exam: elasticity normal, turgor normal and dry skin Neuro General: patient oriented x3 Psych Appearance: grossly normal Mental Status: mental status grossly normal Assessment & Plan Assessment & Plan (1) H/O colonoscopy: Code(s): Z98.890 - Other specified postprocedural states Category: Surgical (2) Screen for colon cancer: Code(s): Z12.11 - Encounter for screening for malignant neoplasm of colon Plan Patient denies any GI, cardiac or respiratory symptoms.? Denies any issues with anesthesia in the past.? Denies any history of sleep apnea.? No history infectious diseases in the past or present.? Not on any anticoagulation therapy.? No family or personal history of colon cancer or polyps.? Patient denies melena, hematochezia, unintentional weight loss or ribbon like stools.? Discussed at length the pre-procedure,? prep, diet & medications as well as what to expect prior, during and after the procedure.?? Stressed the importance of good bowel prep.? Recommended the use of Vaseline or Calmoseptine OTC & baby wipes with bowel movements to promote comfort.? ?Patient verbalizes understanding and agrees to plan of care.? She was given the opportunity to ask questions and all questions answered.? We will see her after the procedure.? Medications: New bisacodyl (Dulcolax (bisacodyl)) take 4 tabs at noon the day before your colonoscopy 20 mg (4 x 5 mg) PO ONCE 1 day 4 tabs 0RF Z12.11 - Encounter for screening for malignant neoplasm of colon polyethylene glycol 3350 (Miralax) As directed by gastro[facility]ology department at [facility] 238 grams PO ONCE 238 grams 0RF Z12.11 - Encounter for screening for malignant neoplasm of colon Coding Level of Care Code New Pt Level 3 (54375) Diagnoses H/O colonoscopy Z98.890 Screen for colon cancer Z12.11 Time Spent (min) 40 Comment 30 minutes spent with patient and additional 10 minutes spent reviewing her records
== END 2024-02-25 09:27 | disposition home or self-care (01) ==
PROVIDERS: PCP Internal Medicine; Visit Provider Nurse Practitioner Family
DX: Z98.890 Other specified postprocedural states (principal); Z12.11 Encounter for screening for malignant neoplasm of colon
CPT/HCPCS: 99203

== ENCOUNTER → 2024-02-25 08:13 | Outpatient (BNVA) | payer MEDICARE, SELFPAY | PROVIDERS: PCP Internal Medicine; Visit Provider Nurse Practitioner Family | DX: Z12.11 Encounter for screening for malignant neoplasm of colon (principal); Z98.890 Other specified postprocedural states | CPT/HCPCS: 99202 ==

== ENCOUNTER 2024-03-25 09:07 | Outpatient (REF) | payer MEDICARE, SELFPAY ==
[2024-03-25 13:18] LABS: MANUAL DIFF FLAG NO
[2024-03-25 13:45] LABS: Basophils Percent Auto 0.5 % (0-2); Eosinophils Absolute Auto 0.1 X10*3/uL (0.0-0.4); Eosinophils Percent Auto 3.2 % (0-4); Hematocrit 36.8 % (37.0-47.0); Hemoglobin 11.8 g/dl (12.0-16.0); Imm Gran Abs Auto 0.01 X10*3/uL (0.00-0.03); Imm Gran Pct Auto 0.3 % (0.0-0.4); Lymphocytes Absolute Auto 1.4 X10*3/uL (1.2-4.9); Lymphocytes Percent Auto 37.5 % (20-40); Mean Corpuscular HGB Conc 32.1 g/dl (31.0-35.0); Mean Corpuscular Hemoglobin 27.8 pg (27.0-33.0); Mean Corpuscular Volume 86.8 fL (80.0-98.0); Mean Platelet Volume 10.5 fL (9.4-12.3); Monocytes Absolute Auto 0.4 X10*3/uL (0.1-1.2); Monocytes Percent Auto 9.5 % (2-11); Neutrophils Absolute Auto 1.9 x10*3/uL (2.0-8.3); Platelet Count 217 X10*3/uL (160-400); Red Blood Count 4.24 X10*6/uL (4.20-5.50); Red Cell Distribution Width 13.6 % (11.0-16.0); White Blood Count 3.8 X10*3/uL (4.8-10.8)
[2024-03-25 13:46] LABS: Estimated Average Glucose 148 mg/dL; Hemoglobin A1c % 6.8 % (<6.0); Total Hemoglobin (HGBA1C) 2937.7393 umol/L
[2024-03-25 14:25] LABS: Alanine Aminotransferase 25 U/L (0-31); Albumin Level 4.2 g/dL (3.5-5.0); Alkaline Phosphatase 59 U/L (39-117); Anion Gap 11 (12-20); Aspartate Amino Transferase 24 U/L (5-31); Bilirubin Total 0.4 mg/dL (0.0-1.0); Blood Urea Nitrogen 16 mg/dL (9-16); Calcium 9.9 mg/dL (8.4-10.2); Carbon Dioxide 27 mmol/L (22-29); Chloride 107 mmol/L (96-108); Cholesterol 176 mg/dL (<200); Estimated Glomerular Filt Rate > 60; Glucose Fasting 114 mg/dL (60-99); HDL Cholesterol 43 mg/dL (>40); Iron 82 mcg/dL (30-160); LDL Cholesterol Calculated 120 mg/dL (<100); Percent Iron Saturation 28 % (15-50); Potassium 4.3 mmol/L (3.3-5.1); Sodium 141 mmol/L (135-145); Total Iron Binding Capacity 295 mcg/dL (228-428); Total Protein 6.9 g/dL (6.5-8.0); Triglycerides 69 mg/dL (<150); Unsaturated Iron Binding 213 ug/dL
[2024-03-25 14:31] LABS: Creatinine Urine 211.62 mg/dL; Microalbum/Creatinine Ratio Ur 8.5 ug/mg cr (<30)
[2024-03-25 14:33] LABS: Folate 14.8 ng/mL (> or = 4.0); Vitamin B12 309 pg/mL (200-900)
== END 2024-03-25 09:08 | disposition home or self-care (01) ==
LOC: HO.HMGCLDS 09:07
PROVIDERS: PCP Internal Medicine; Visit Provider Internal Medicine
DX: Z00.00 Encounter for general adult medical examination without abnormal findings (principal); E11.9 Type 2 diabetes mellitus without complications; D64.9 Anemia, unspecified
CPT/HCPCS: 36415; 80053; 80061; 82043; 82570; 82607; 82746; 83036; 83540; 85025

== ENCOUNTER 2024-03-29 10:38 | Outpatient (AMB) | payer MEDICARE, SELFPAY ==
--- NOTE | 2024-03-29 11:08 | A.OFFPC_ITS ---
Vital Signs 03/29/24 11:09 Height 5 ft 2 in Weight 163 lb BMI 29.8 BP 128/74 Blood Pressure Location Lt brachial Position Sitting Pulse 73 Pulse Source Pulse Oximeter Pulse Oximetry (%) 99 Oxygen Delivery Method Room Air Intake Visit Reasons: 4 month follow up Intake Note: Pt is here today for 4 months follow up visit on labs. Allergies ezetimibe [From Zetia] Adverse Reaction (Intermediate, Verified 03/29/24 12:05) arthralgia atorvastatin Adverse Reaction (Unknown, Verified 03/29/24 11:12) Myalgia rosuvastatin [Crestor] Adverse Reaction (Unknown, Verified 03/29/24 11:12) Myalgia Medication List - Last Reconciled 03/29/24 by Amber Fabian MD bisacodyl (Dulcolax (bisacodyl)) 20 mg (4 x 5 mg) PO ONCE 1 day blood sugar diagnostic (FreeStyle Lite Strips) test blood sugar once a day ezetimibe 10 mg PO DAILY lancets (OneTouch Delica Lancets) test blood sugar once a day metformin 1,000 mg (2 x 500 mg) PO BID OneTouch Ultra Test (blood sugar diagnostic) test blood sugar once a day NS OneTouch Ultra2 Meter (blood-glucose meter) As directed to test blood sugars NS polyethylene glycol 3350 (Miralax) 238 grams PO ONCE Tobacco use date assessed: 03/29/24 Dental Screening Dental Screen Date: 11/25/23 HPI 4 month follow up HPI Details Pt presents for f/u DM 2, hyperlipid. Pt did not tolerate Zetia developed severe leg pain, which resolved after patient has stopped taking med. [facility] Medical History Mammogram normal Annual physical exam Anxiety Hyperlipidemia Type 2 diabetes mellitus Surgical History S/P hysterectomy H/O colonoscopy Family History Father No problems noted. Mother No problems noted. Social History Housing: House Patient Tobacco Use Status: Never used Tobacco e-Cigarette/Vaping Use: Never Used service: No Current occupational status: retired Cognitive needs: No Hearing needs: No Vision needs: Yes Questionnaire Thrive Questionnaire Date Thrive assessed: 06/30/23 GISSEL-7 AMB Questionnaire GISSEL-7 Date GISSEL - 7 assessed: 06/30/23 Source: Developed by Drs. Malik Kerr, Gwendolyn Aguero, Randy Lewis and colleagues, with an educational nadine from [employer]. Review of Systems Const All systems reviewed & are unremarkable except as noted in HPI and below ENT Reports no additional complaints Card Reports no additional complaints Resp Reports no additional complaints GI Reports no additional complaints Reports no additional complaints Physical exam (Primary Care) Vital Signs: Last Vital Signs Pulse 73 03/29/24 11:09 BP 128/74 03/29/24 11:09 Pulse Ox 99 03/29/24 11:09 Oxygen Delivery Method Room Air 03/29/24 11:09 BMI result Body Mass Index 29.8 Tobacco/Smoking Status: Tobacco use Status Tobacco use date assessed 03/29/24 03/29/24 11:09 Patient Tobacco Use Status Never used Tobacco 03/29/24 11:09 e-Cigarette/Vaping Use Never Used 03/29/24 11:09 Thrive Assessment: Date of Thrive Assessment Date Thrive assessed 06/30/23 03/29/24 11:09 Const General: no acute distress Eyes General: appearance normal, both eyes and all related structures Neck Neck: Yes supple Resp Effort & Inspection: normal respiratory effort Auscultation: clear to auscultation bilaterally Cardio Rhythm: regular rhythm Heart sounds: S1 normal heart sound present and S2 normal heart sound present GI Inspection: Yes normal to inspection Palpation (GI): Soft to palpation Coding Level of Care Code Est Pt Level 3 (48391) Diagnoses Type 2 diabetes mellitus E11.9 Hyperlipidemia E78.5 Assessment & Plan Assessment & Plan (1) Type 2 diabetes mellitus: Comment: A1C less than 7 Code(s): E11.9 - Type 2 diabetes mellitus without complications Category: Medical Plan: A1c is 6.8. ADA diet increase exercise weight loss discussed with the patient Ozempic 0.25 mg weekly will be added to metformin. If patient tolerates lower dose the dose will be increased after 1 month (2) Hyperlipidemia: Comment: Intolerant to atorvastatin and crestor, Zetia Code(s): E78.5 - Hyperlipidemia, unspecified Category: Medical Plan: Continue low-cholesterol diet Orders: Orders Comprehensive [place]. Panel Fast 3 Months E11.9 - Type 2 diabetes mellitus without complications, E78.5 - Hyperlipidemia, unspecified Hemoglobin A1c 3 Months E11.9 - Type 2 diabetes mellitus without complications, E78.5 - Hyperlipidemia, unspecified Lipid Panel 3 Months E11.9 - Type 2 diabetes mellitus without complications, E78.5 - Hyperlipidemia, unspecified Microalbumin, Random (w Creat) 3 Months E11.9 - Type 2 diabetes mellitus without complications, E78.5 - Hyperlipidemia, unspecified Medications: New Ozempic (semaglutide) 0.25 mg (0.368 mL) subcut QWEEK 3 mL 2RF NS
[2024-03-29 11:09] VITALS: BP 128/74; PULSE 73; O2SAT 99; BMI 29.8
== END 2024-03-29 13:36 | disposition home or self-care (01) ==
LOC: HO.HMCC 10:38
PROVIDERS: PCP Internal Medicine; Visit Provider Internal Medicine
DX: E11.9 Type 2 diabetes mellitus without complications (principal); E78.5 Hyperlipidemia, unspecified

== ENCOUNTER → 2024-03-29 10:38 | Outpatient (BNVA) | payer MEDICARE, SELFPAY | PROVIDERS: PCP Internal Medicine; Visit Provider Internal Medicine | DX: E11.9 Type 2 diabetes mellitus without complications (principal); E78.5 Hyperlipidemia, unspecified | CPT/HCPCS: 99212 ==

== ENCOUNTER 2024-07-22 09:12 | Outpatient (REF) | payer MEDICARE, SELFPAY ==
[2024-07-22 10:25] LABS: Estimated Average Glucose 151 mg/dL; Hemoglobin A1c % 6.9 % (<6.0); Total Hemoglobin (HGBA1C) 3300.3096 umol/L
[2024-07-22 10:42] LABS: Creatinine Urine 80.39 mg/dL; Microalbum/Creatinine Ratio Ur 12.4 ug/mg cr (<30)
[2024-07-22 11:11] LABS: Alanine Aminotransferase 18 U/L (0-31); Albumin Level 4.2 g/dL (3.5-5.0); Alkaline Phosphatase 62 U/L (39-117); Anion Gap 10 (12-20); Aspartate Amino Transferase 13 U/L (5-31); Bilirubin Total 0.4 mg/dL (0.0-1.0); Blood Urea Nitrogen 12 mg/dL (9-16); Calcium 9.4 mg/dL (8.4-10.2); Carbon Dioxide 29 mmol/L (22-29); Chloride 105 mmol/L (96-108); Cholesterol 231 mg/dL (<200); Estimated Glomerular Filt Rate > 60; Glucose Fasting 125 mg/dL (60-99); HDL Cholesterol 37 mg/dL (>40); LDL Cholesterol Calculated 156 mg/dL (<100); Potassium 4.2 mmol/L (3.3-5.1); Sodium 140 mmol/L (135-145); Total Protein 7.3 g/dL (6.5-8.0); Triglycerides 190 mg/dL (<150)
== END 2024-07-22 09:13 | disposition home or self-care (01) ==
LOC: HO.HMGCLDS 09:12
PROVIDERS: PCP Internal Medicine; Visit Provider Internal Medicine
DX: E78.5 Hyperlipidemia, unspecified (principal); E11.9 Type 2 diabetes mellitus without complications
CPT/HCPCS: 36415; 80053; 80061; 82043; 82570; 83036

== ENCOUNTER 2024-07-27 11:04 | Outpatient (AMB) | payer MEDICARE, SELFPAY ==
[2024-07-27 11:08] VITALS: BP 136/78; PULSE 84; RESP 18; TEMP 36.8; O2SAT 97; BMI 29.8
--- NOTE | 2024-07-27 11:08 | A.OFFPC_ITS ---
Vital Signs 07/27/24 11:08 Height 5 ft 2 in Weight 163 lb BMI 29.8 BP 136/78 Blood Pressure Location Lt brachial Position Sitting Respiration 18 Pulse 84 Pulse Source Pulse Oximeter Temp 98.2 F Temp Source Oral Pulse Oximetry (%) 97 Oxygen Delivery Method Room Air Intake Visit Reasons: 3m follow up Intake Note: Pt is here today for 3 months follow up visit. Allergies ezetimibe [From Zetia] Adverse Reaction (Intermediate, Verified 07/27/24 11:08) arthralgia atorvastatin Adverse Reaction (Unknown, Verified 07/27/24 11:08) Myalgia rosuvastatin [Crestor] Adverse Reaction (Unknown, Verified 07/27/24 11:08) Myalgia Tobacco use date assessed: 07/27/24 Fall risk assessment: No Falls in past year Last assessed Fall Risk: 07/27/24 Dental Screening Dental Screen Date: 07/27/24 Did you have a dental visit in the last 12 months?: Yes Did you have a dental problem in the last 6 months where you did not have access to dental care?: No Was dental information given to patient?: Patient has dentist HPI 3m follow up HPI Details Pt presents for f/u DM 2, hyperlipid, stable on meds [facility] Medical History Mammogram normal Annual physical exam Anxiety Hyperlipidemia Type 2 diabetes mellitus Surgical History S/P hysterectomy H/O colonoscopy Family History Father No problems noted. Mother No problems noted. Social History Housing: House Are you a primary geriatric care manager to a significant other at home: No Do you presently have visiting nurse or other home services: No Patient Tobacco Use Status: Never used Tobacco e-Cigarette/Vaping Use: Never Used service: No Current occupational status: retired Cognitive needs: No Hearing needs: No Vision needs: Yes Questionnaire PHQ-9 Over the last 2 weeks, how often have you been bothered by any of the following problems? 1. Little interest or pleasure in doing things: not at all 2. Feeling down, depressed, or hopeless: not at all 3. Trouble falling or staying asleep, or sleeping too much: not at all 4. Feeling tired or having little energy: not at all 5. Poor appetite or overeating: not at all 6. Feeling bad about yourself - or that you are a failure or have let yourself or your family down: not at all 7. Trouble concentrating on things, such as reading the newspaper or watching television: not at all 8. Moving or speaking so slowly that other people could have noticed. Or the opposite - being so fidgety or restless that you have been moving around a lot more than usual: not at all 9. Thoughts that you would be better off or of hurting yourself in some way: not at all Total score: 0 Depression Screening Interpretation: Negative Depression Screening Done: Yes 26785 - PHQ-9 Billing: Yes Source: Developed by Drs. Malik Kerr, Gwendolyn Aguero, Randy Lewis and colleagues, with an educational nadine from [email or web address]. Thrive Questionnaire Date Thrive assessed: 07/27/24 I am a: Patient What is your living situation today?: I have a steady place to live Within the past 12 months, did the food you bought not last and you didn't have the money to get more?: Never true Within the past 12 months, did you worry whether your food would run out before you got money to buy more?: Never true Do you have trouble paying for medicines?: No Do you have trouble getting transportation to medical appointments?: No Do you have trouble paying your heating and electricity bill?: No Do you have trouble taking care of your child, family member or friend?: No Do you have trouble with day-to-day activities such as bathing, preparing meals, shopping, managing finances, etc.?: No Are you currently unemployed and looking for a job?: No Are you interested in more education?: No Please select the resources that you would like help with: None THRIVE Score: 0 AUDIT C Alcohol Use Questionnaire (AUDIT-C) 1. How often do you have a drink containing alcohol?: Never 3. How often do you have six or more drinks on one occasion?: Never Total Score: 0 GISSEL-7 AMB Questionnaire GISSEL-7 Date GISSEL - 7 assessed: 07/27/24 Feeling nervous, anxious, or on edge: 0 = Not at all Not being able to stop or control worryin = Not at all Worrying too much about different things: 0 = Not at all Trouble relaxin = Not at all Being so restless that it is hard to sit still: 0 = Not at all Becoming easily annoyed or irritable: 0 = Not at all Feeling afraid as if something awful might happen: 0 = Not at all Total GISSEL-7 score (0-4 normal; 5-9 mild; 10-14 moderate; 15-21 severe): 0 Source: Developed by Drs. Malik Kerr, Gwendolyn Aguero, Randy Lewis and colleagues, with an educational nadine from [email or web address]. GISSEL-7 Assessment Billing GISSEL-7 Assessment Tool: GISSEL-7 Assessment 26132 Review of Systems Const All systems reviewed & are unremarkable except as noted in HPI and below Reports no additional complaints Eyes Reports no additional complaints ENT Reports no additional complaints Card Reports no additional complaints Resp Reports no additional complaints GI Reports no additional complaints Reports no additional complaints Physical exam (Primary Care) Vital Signs: Last Vital Signs Temp 98.2 F 07/27/24 11:08 Pulse 84 07/27/24 11:08 Resp 18 07/27/24 11:08 BP 136/78 07/27/24 11:08 Pulse Ox 97 07/27/24 11:08 Oxygen Delivery Method Room Air 07/27/24 11:08 BMI result Body Mass Index 29.8 Tobacco/Smoking Status: Tobacco use Status Tobacco use date assessed 07/27/24 07/27/24 11:11 Patient Tobacco Use Status Never used Tobacco 07/27/24 11:11 e-Cigarette/Vaping Use Never Used 07/27/24 11:11 PHQ-9: PHQ-9 Score PHQ-9: Total score 0 07/27/24 11:18 Depression Screening Interpretation: Negative Thrive Assessment: Date of Thrive Assessment Date Thrive assessed 07/27/24 07/27/24 11:18 Const General: no acute distress HENMT Head: Yes normal to inspection Face and sinus: Yes normal facial exam Eyes General: appearance normal, both eyes and all related structures Neck Neck: Yes supple Resp Effort & Inspection: normal respiratory effort Auscultation: clear to auscultation bilaterally Cardio Rhythm: regular rhythm Heart sounds: S1 normal heart sound present and S2 normal heart sound present GI Inspection: Yes normal to inspection Palpation (GI): Soft to palpation Percussion: Yes normal to percussion Auscultation: normal bowel sounds Coding Level of Care Code Est Pt Level 3 (46691) Diagnoses Type 2 diabetes mellitus E11.9 Hyperlipidemia E78.5 Additional Codes GISSEL-7 Assessment Billing - GISSEL-7 Assessment Tool: GISSEL-7 Assessment 49154 ([id number]) PHQ-9 - 01688 - PHQ-9 Billing: Yes ([id number]) Assessment & Plan Assessment & Plan (1) Type 2 diabetes mellitus: Comment: A1C less than 7 Code(s): E11.9 - Type 2 diabetes mellitus without complications Category: Medical Plan: A1c is 6.9, ADA diet increase exercise weight loss discussed with the patient continue metformin follow-up in 3 months with a fasting labs before (2) Hyperlipidemia: Comment: Intolerant to atorvastatin and crestor, Zetia Code(s): E78.5 - Hyperlipidemia, unspecified Category: Medical Plan: Patient will restart Zetia low-cholesterol diet regular physical activity discussed with the patient
== END 2024-07-27 11:50 | disposition home or self-care (01) ==
PROVIDERS: PCP Internal Medicine; Visit Provider Internal Medicine
DX: E11.9 Type 2 diabetes mellitus without complications (principal); E78.5 Hyperlipidemia, unspecified

== ENCOUNTER → 2024-07-27 11:04 | Outpatient (BNVA) | payer MEDICARE, SELFPAY | PROVIDERS: PCP Internal Medicine; Visit Provider Internal Medicine | DX: E11.9 Type 2 diabetes mellitus without complications (principal); E78.5 Hyperlipidemia, unspecified | CPT/HCPCS: 96127; 99212 ==

== ENCOUNTER 2024-12-14 09:39 | Outpatient (REF) | payer MEDICARE, SELFPAY ==
[2024-12-14 13:38] LABS: MANUAL DIFF FLAG NO
[2024-12-14 13:42] LABS: Hematocrit 37.5 % (37.0-47.0); Hemoglobin 11.9 g/dl (12.0-16.0); Imm Gran Abs Auto 0.01 X10*3/uL (0.00-0.03); Imm Gran Pct Auto 0.2 % (0.0-0.4); Lymphocytes Absolute Auto 1.4 X10*3/uL (1.2-4.9); Mean Corpuscular HGB Conc 31.7 g/dl (31.0-35.0); Mean Corpuscular Hemoglobin 27.2 pg (27.0-33.0); Mean Corpuscular Volume 85.8 fL (80.0-98.0); NRBC Abs Auto 0.000 X10*3/uL (0.0-0.012); NRBC Pct Auto 0.0 /100WBC (0.0-0.2); Platelet Count 188 X10*3/uL (160-400); Red Blood Count 4.37 X10*6/uL (4.20-5.50); White Blood Count 4.3 X10*3/uL (4.8-10.8)
[2024-12-14 13:57] LABS: Hemoglobin A1C 158.3794 umol/L; Total Hemoglobin (HGBA1C) 3133.5215 umol/L
[2024-12-14 14:11] LABS: Alanine Aminotransferase 21 U/L (0-31); Albumin Level 4.3 g/dL (3.5-5.0); Alkaline Phosphatase 57 U/L (39-117); Anion Gap 11 (12-20); Aspartate Amino Transferase 20 U/L (5-31); Blood Urea Nitrogen 14 mg/dL (9-16); Calcium 8.9 mg/dL (8.4-10.2); Carbon Dioxide 27 mmol/L (22-29); Chloride 108 mmol/L (96-108); Cholesterol 245 mg/dL (<200); Estimated Glomerular Filt Rate > 60; HDL Cholesterol 38 mg/dL (>40); Potassium 4.1 mmol/L (3.3-5.1); Sodium 142 mmol/L (135-145); Total Protein 6.7 g/dL (6.5-8.0); Triglycerides 162 mg/dL (<150)
[2024-12-14 14:34] LABS: Microalbum/Creatinine Ratio Ur 11.2 ug/mg cr (<30)
== END 2024-12-14 09:40 | disposition home or self-care (01) ==
LOC: HO.HMGCLDS 09:39
PROVIDERS: PCP Internal Medicine; Visit Provider Internal Medicine
DX: E11.9 Type 2 diabetes mellitus without complications (principal); E78.5 Hyperlipidemia, unspecified
CPT/HCPCS: 36415; 80053; 80061; 82043; 82570; 83036; 85025

== ENCOUNTER 2024-12-20 11:36 | Outpatient (AMB) | payer MEDICARE, SELFPAY ==
[2024-12-20 12:03] VITALS: BP 120/76; PULSE 83; RESP 18; TEMP 36.8; O2SAT 97; BMI 28.3
--- NOTE | 2024-12-20 12:03 | A.OFFPC_ITS ---
Vital Signs 12/20/24 12:03 Height 5 ft 2 in Weight 155 lb BMI 28.3 BP 120/76 Blood Pressure Location Lt brachial Position Sitting Respiration 18 Pulse 83 Pulse Source Pulse Oximeter Temp 98.2 F Temp Source Oral Pulse Oximetry (%) 97 Oxygen Delivery Method Room Air Intake Visit Reasons: Annual PE Intake Note: Pt is here today for PE. Allergies ezetimibe (From Zetia) Adverse Reaction (Intermediate, Verified 12/20/24 12:05) arthralgia atorvastatin Adverse Reaction (Unknown, Verified 12/20/24 12:05) Myalgia rosuvastatin (Crestor) Adverse Reaction (Unknown, Verified 12/20/24 12:05) Myalgia Medication List - Last Reconciled 12/20/24 by Amber Fabian MD blood sugar diagnostic (FreeStyle Lite Strips) test blood sugar once a day ezetimibe 10 mg PO DAILY Jardiance (empagliflozin) 10 mg PO DAILY NS lancets (OneTouch Delica Lancets) test blood sugar once a day metformin 1,000 mg (2 x 500 mg) PO BID OneTouch Ultra Test (blood sugar diagnostic) test blood sugar once a day NS OneTouch Ultra2 Meter (blood-glucose meter) As directed to test blood sugars NS Tobacco use date assessed: 12/20/24 Fall risk assessment: No Falls in past year Last assessed Fall Risk: 12/20/24 Dental Screening Dental Screen Date: 12/20/24 Did you have a dental visit in the last 12 months?: Yes Did you have a dental problem in the last 6 months where you did not have access to dental care?: No Was dental information given to patient?: Patient has dentist HPI Annual PE HPI Details Patient presents for physical [facility] Medical History (Updated 12/20/24 @ 12:41 by Amber Fabian MD) Mammogram normal Annual physical exam Anxiety Hyperlipidemia Type 2 diabetes mellitus Surgical History S/P hysterectomy H/O colonoscopy Family History Father No problems noted. Mother No problems noted. Social History Housing: House Are you a primary director career to a significant other at home: No Do you presently have visiting nurse or other home services: No Patient Tobacco Use Status: Never used Tobacco e-Cigarette/Vaping Use: Never Used service: No Current occupational status: retired Cognitive needs: No Hearing needs: No Vision needs: Yes Questionnaire Thrive Questionnaire Date Thrive assessed: 07/27/24 GISSEL-7 AMB Questionnaire GISSEL-7 Date GISSEL - 7 assessed: 07/27/24 Source: Developed by Drs. Malik Kerr, Gwendolyn Aguero, Randy Lewis and colleagues, with an educational nadine from [employer]. Review of Systems Const All systems reviewed & are unremarkable except as noted in HPI and below Eyes Reports no additional complaints ENT Reports no additional complaints Card Reports no additional complaints Resp Reports no additional complaints GI Reports no additional complaints Reports no additional complaints Musc Reports no additional complaints Physical exam (Primary Care) Vital Signs: Last Vital Signs Temp 98.2 F 12/20/24 12:03 Pulse 83 12/20/24 12:03 Resp 18 12/20/24 12:03 BP 120/76 12/20/24 12:03 Pulse Ox 97 12/20/24 12:03 Oxygen Delivery Method Room Air 12/20/24 12:03 BMI result Body Mass Index 28.3 Tobacco/Smoking Status: Tobacco use Status Tobacco use date assessed 12/20/24 12/20/24 12:07 Patient Tobacco Use Status Never used Tobacco 12/20/24 12:03 e-Cigarette/Vaping Use Never Used 12/20/24 12:03 Thrive Assessment: Date of Thrive Assessment Date Thrive assessed 07/27/24 12/20/24 12:03 Const General: no acute distress HENMT Head: Yes normal to inspection Face and sinus: Yes normal facial exam Mouth: Normal oral and palatal mucosa present Eyes General: appearance normal, both eyes and all related structures Neck Neck: Yes no lymphadenopathy and Yes supple Resp Effort & Inspection: normal respiratory effort Auscultation: clear to auscultation bilaterally Cardio Rhythm: regular rhythm Heart sounds: S1 normal heart sound present and S2 normal heart sound present GI Inspection: Yes normal to inspection Palpation (GI): Soft to palpation Percussion: Yes normal to percussion Auscultation: normal bowel sounds Coding Level of Care Code Est Pt Prev Care >65y(95663) Diagnoses Type 2 diabetes mellitus E11.9 Hyperlipidemia E78.5 Postmenopausal Z78.0 Annual physical exam Z00.00 Assessment & Plan Assessment & Plan (1) Type 2 diabetes mellitus: Comment: A1C less than 7 Code(s): E11.9 - Type 2 diabetes mellitus without complications Category: Medical Plan: A1c is 6.8, ADA diet increase physical activity weight loss discussed with the patient. GLP 1 agonist are not covered by her insurance. Jardiance 10 mg daily will be added. Follow-up in 3 months with a fasting labs before (2) Hyperlipidemia: Comment: Intolerant to atorvastatin and crestor, Code(s): E78.5 - Hyperlipidemia, unspecified Category: Medical Plan: Patient will restart Zetia low-cholesterol diet regular exercise discussed with the patient (3) Postmenopausal: Code(s): Z78.0 - Asymptomatic menopausal state Category: Medical Plan: Check DEXA (4) Annual physical exam: Code(s): Z00.00 - Encounter for general adult medical examination without abnormal findings Category: Medical Plan: Well-balanced diet regular exercise discussed with the patient she is up-to-date with the mammogram colonoscopy and DEXA will be scheduled Orders: Orders Comprehensive [place]. Panel Fast 3 Months E11.9 - Type 2 diabetes mellitus without complications, E78.5 - Hyperlipidemia, unspecified Lipid Panel 3 Months E11.9 - Type 2 diabetes mellitus without complications, E78.5 - Hyperlipidemia, unspecified Microalbumin, Random (w Creat) 3 Months E11.9 - Type 2 diabetes mellitus without complications, E78.5 - Hyperlipidemia, unspecified Hemoglobin A1c 3 Months E11.9 - Type 2 diabetes mellitus without complications, E78.5 - Hyperlipidemia, unspecified Complete Blood Count Auto Diff 3 Months E11.9 - Type 2 diabetes mellitus without complications, E78.5 - Hyperlipidemia, unspecified XR DEXA axial skeleton Today Z78.0 - Asymptomatic menopausal state Medications: New Jardiance (empagliflozin) 10 mg PO DAILY 90 tabs 2RF NS ezetimibe 10 mg PO DAILY 90 tabs 3RF Refilled metformin 1,000 mg (2 x 500 mg) PO BID 360 tabs 3RF
== END 2024-12-20 12:38 | disposition home or self-care (01) ==
LOC: HO.HMCC 11:37
PROVIDERS: PCP Internal Medicine; Visit Provider Internal Medicine
DX: E11.9 Type 2 diabetes mellitus without complications (principal); E78.5 Hyperlipidemia, unspecified; Z78.0 Asymptomatic menopausal state; Z00.00 Encounter for general adult medical examination without abnormal findings

== ENCOUNTER → 2024-12-20 11:36 | Outpatient (BNVA) | payer MEDICARE, SELFPAY | PROVIDERS: PCP Internal Medicine; Visit Provider Internal Medicine | DX: Z00.00 Encounter for general adult medical examination without abnormal findings (principal); E11.9 Type 2 diabetes mellitus without complications; E78.5 Hyperlipidemia, unspecified; Z78.0 Asymptomatic menopausal state | CPT/HCPCS: 99397 ==

== ENCOUNTER 2025-02-11 10:13 | Outpatient (REF) | payer MEDICARE, SELFPAY ==
--- NOTE | ~2025-02-11 | MM_ITS ---
EXAMINATION: MM SCREENING DIGITAL BREAST TOMOSYNTHESIS, BILATERAL CLINICAL INFORMATION: Screening. Asymptomatic. COMPARISON: Comparison made to multiple prior, most recent January 30, 2024, and most remote April 06, 2020. TECHNIQUE: Digital breast tomosynthesis is performed in mediolateral oblique and craniocaudal views along with computer-aided detection (CAD). Synthesized 2D images are generated from the tomosynthesis. FINDINGS: BREAST COMPOSITION: There are scattered areas of fibroglandular density (ACR BI-RADS breast composition Category b). BILATERAL BREASTS: No significant masses, suspicious calcifications or other abnormalities are seen in either breast. MM/MM tomosynthesis screening BI IMPRESSION: BILATERAL BREASTS: Negative, no mammographic evidence of malignancy. Normal interval follow-up is recommended in 12 months. ASSESSMENT: BI-RADS 1 - Negative RECOMMENDATION: Routine annual mammography screening. FOLLOW-UP: 1 year F/U This examination should not preclude the clinical evaluation of a suspicious palpable abnormality. This patient's information was entered into a reminder system with a target due date for their next mammogram. Electronically signed by: Yandy Hillman MD 02/15/2025 07:53 AM EDT
--- NOTE | ~2025-02-11 | MM_ITS ---
EXAMINATION: DXA BONE DENSITY AXIAL HISTORY: Z78.0 - Asymptomatic menopausal state TECHNIQUE: [employer] Dual energy absorptiometry (DEXA) of the lumbar spine, total left hip, and femoral neck was performed. COMPARISON: Comparison is made with the prior examination dated 06/02/2018. FINDINGS: The bone mineral density of the lumbar spine is 1.018 g/cm2, corresponding to a T-score of -1.3, and a Z-score of -0.1. This is indicative of osteopenia. This represents a BMD change of -6.6% compared to the prior exam. This is statistically significant. The bone mineral density of the left total hip is 0.997 g/cm2, corresponding to a T-score of -0.1, and a Z-score of 1.0. This is indicative of normal bone mineral density. This represents a BMD change of -4.6% compared to the prior exam. This is statistically significant. The bone mineral density of the left femoral neck is 0.854 g/cm2, corresponding to a T-score of -1.3, and a Z-score of 0.1. This is indicative of osteopenia. This represents a BMD change of -4.5% compared to the prior exam. FRACTURE RISK: The FRAX index suggests a ten year probability of major osteoporotic fracture of 9.0%, and of hip fracture 1.1%. MM/XR DEXA axial skeleton IMPRESSION: Based on bone mineral density, and according to World Health Organization (WHO) criteria, the diagnosis is consistent with osteopenia. Statistically, 68% of repeat scans fall within 1 SD (+/- 0.010 g/cm2 for AP spine L1-L4) and 1 SD (+/- 0.012 g/cm2 for femur total) FRAX is a trademark of the [employer]'s [place] for Metabolic Bone Disease, a World Health Organization (WHO) Collaborating Center. Electronically signed by: Malik Santiago MD 02/11/2025 11:07 AM EDT
== END 2025-02-11 10:14 | disposition home or self-care (01) ==
LOC: HO.MAMMO 10:13
PROVIDERS: Visit Provider Internal Medicine
DX: Z12.31 Encounter for screening mammogram for malignant neoplasm of breast (principal); Z13.820 Encounter for screening for osteoporosis; Z78.0 Asymptomatic menopausal state
CPT/HCPCS: 77063; 77067; 77080

== ENCOUNTER → 2025-02-11 11:00 | Outpatient (BNV) | payer MEDICARE, SELFPAY | PROVIDERS: Visit Provider Radiology Diagnostic Radiology | DX: E28.39 Other primary ovarian failure (principal) | CPT/HCPCS: 77080 ==

== ENCOUNTER 2025-04-25 10:38 | Outpatient (REF) | payer MEDICARE, SELFPAY ==
[2025-04-25 13:27] LABS: MANUAL DIFF FLAG NO
[2025-04-25 13:47] LABS: Hematocrit 38.0 % (37.0-47.0); Hemoglobin 12.6 g/dl (12.0-16.0); Imm Gran Abs Auto 0.02 X10*3/uL (0.00-0.03); Imm Gran Pct Auto 0.3 % (0.0-0.4); Lymphocytes Absolute Auto 2.3 X10*3/uL (1.2-4.9); Mean Corpuscular HGB Conc 33.2 g/dl (31.0-35.0); Mean Corpuscular Hemoglobin 28.5 pg (27.0-33.0); Mean Corpuscular Volume 86.0 fL (80.0-98.0); NRBC Abs Auto 0.000 X10*3/uL (0.0-0.012); NRBC Pct Auto 0.0 /100WBC (0.0-0.2); Platelet Count 204 X10*3/uL (160-400); Red Blood Count 4.42 X10*6/uL (4.20-5.50); White Blood Count 5.7 X10*3/uL (4.8-10.8)
[2025-04-25 14:24] LABS: Alanine Aminotransferase 19 U/L (0-31); Albumin Level 4.6 g/dL (3.5-5.0); Alkaline Phosphatase 61 U/L (39-117); Anion Gap 9 (12-20); Aspartate Amino Transferase 20 U/L (5-31); Blood Urea Nitrogen 16 mg/dL (9-16); Calcium 9.4 mg/dL (8.4-10.2); Carbon Dioxide 30 mmol/L (22-29); Chloride 106 mmol/L (96-108); Cholesterol 227 mg/dL (<200); Estimated Glomerular Filt Rate > 60; HDL Cholesterol 41 mg/dL (>40); Potassium 4.5 mmol/L (3.3-5.1); Sodium 140 mmol/L (135-145); Total Protein 7.1 g/dL (6.5-8.0); Triglycerides 173 mg/dL (<150)
== END 2025-04-25 10:39 | disposition home or self-care (01) ==
LOC: HO.HMGCLDS 10:38
PROVIDERS: PCP Internal Medicine; Visit Provider Internal Medicine
DX: E11.9 Type 2 diabetes mellitus without complications (principal); M25.561 Pain in right knee; E78.5 Hyperlipidemia, unspecified; D64.9 Anemia, unspecified
CPT/HCPCS: 36415; 80053; 80061; 82043; 82570; 83036; 85025; 99212

== ENCOUNTER 2025-04-25 10:38 | Outpatient (AMB) | payer MEDICARE, SELFPAY ==
[2025-04-25 10:43] VITALS: BP 124/76; PULSE 65; RESP 17; TEMP 36.8; O2SAT 98; BMI 29.4
--- NOTE | 2025-04-25 10:43 | A.OFFPC_ITS ---
Vital Signs 04/25/25 10:43 Height 5 ft 2 in Weight 161 lb BMI 29.4 BP 124/76 Blood Pressure Location Lt brachial Position Sitting Respiration 17 Pulse 65 Pulse Source Pulse Oximeter Temp 98.3 F Temp Source Oral Pulse Oximetry (%) 98 Oxygen Delivery Method Room Air Intake Visit Reasons: 4 months f/up Intake Note: Pt is here today for 4 months follow up visit on DM. Allergies ezetimibe (From Zetia) Adverse Reaction (Intermediate, Verified 04/25/25 10:44) arthralgia atorvastatin Adverse Reaction (Unknown, Verified 04/25/25 10:44) Myalgia rosuvastatin (Crestor) Adverse Reaction (Unknown, Verified 04/25/25 10:44) Myalgia Medication List - Last Reconciled 04/25/25 by Amber Fabian MD blood sugar diagnostic (FreeStyle Lite Strips) test blood sugar once a day ezetimibe 10 mg PO DAILY Jardiance (empagliflozin) 10 mg PO DAILY NS lancets (OneTouch Delica Lancets) test blood sugar once a day metformin 1,000 mg (2 x 500 mg) PO BID OneTouch Ultra Test (blood sugar diagnostic) test blood sugar once a day NS OneTouch Ultra2 Meter (blood-glucose meter) As directed to test blood sugars NS Tobacco use date assessed: 04/25/25 Fall risk assessment: No Falls in past year Last assessed Fall Risk: 04/25/25 Dental Screening Dental Screen Date: 12/20/24 HPI 4 months f/up HPI Details Patient presents for the follow-up of type 2 diabetes and hyperlipidemia. She complains of chronic right knee pain worse when starting to walk but also at rest for the last few months. She denies injury or joint swelling. [facility] Medical History (Updated 04/25/25 @ 11:27 by Amber Fabian MD) Mammogram normal Annual physical exam Anxiety Hyperlipidemia Type 2 diabetes mellitus Surgical History S/P hysterectomy H/O colonoscopy Family History Father No problems noted. Mother No problems noted. Social History Housing: House Are you a primary managed care coordinator to a significant other at home: No Do you presently have visiting nurse or other home services: No Patient Tobacco Use Status: Never used Tobacco e-Cigarette/Vaping Use: Never Used service: No Current occupational status: retired Cognitive needs: No Hearing needs: No Vision needs: Yes Questionnaire Thrive Questionnaire Date Thrive assessed: 07/27/24 GISSEL-7 AMB Questionnaire GISSEL-7 Date GISSEL - 7 assessed: 07/27/24 Source: Developed by Drs. Malik Kerr, Gwendolyn Aguero, Randy Lewis and colleagues, with an educational nadine from [employer]. Review of Systems Const All systems reviewed & are unremarkable except as noted in HPI and below Eyes Reports no additional complaints ENT Reports no additional complaints Card Reports no additional complaints Resp Reports no additional complaints GI Reports no additional complaints Reports no additional complaints Physical exam (Primary Care) Vital Signs: Last Vital Signs Temp 98.3 F 04/25/25 10:43 Pulse 65 04/25/25 10:43 Resp 17 04/25/25 10:43 BP 124/76 04/25/25 10:43 Pulse Ox 98 04/25/25 10:43 Oxygen Delivery Method Room Air 04/25/25 10:43 BMI result Body Mass Index 29.4 Tobacco/Smoking Status: Tobacco use Status Tobacco use date assessed 04/25/25 04/25/25 10:44 Patient Tobacco Use Status Never used Tobacco 04/25/25 10:43 e-Cigarette/Vaping Use Never Used 04/25/25 10:43 Thrive Assessment: Date of Thrive Assessment Date Thrive assessed 07/27/24 04/25/25 10:43 Const General: no acute distress HENMT Head: Yes normal to inspection Throat: Yes posterior oropharynx normal Neck Neck: Yes supple Resp Effort & Inspection: normal respiratory effort Auscultation: clear to auscultation bilaterally Cardio Rhythm: regular rhythm Heart sounds: S1 normal heart sound present and S2 normal heart sound present Extrem Other: This is a decreased range of motion, crepitus and tenderness in the medial aspect of right knee. No soft tissue swelling erythema or warmth General: Yes no clubbing, cyanosis or edema Coding Level of Care Code Est Pt Level 4 (06741) Diagnoses Knee pain, right M25.561 Hyperlipidemia E78.5 Type 2 diabetes mellitus E11.9 Assessment & Plan Assessment & Plan (1) Knee pain, right: Code(s): M25.561 - Pain in right knee Category: Medical Plan: Obtain x-ray of right knee and referred to physical therapy (2) Hyperlipidemia: Comment: Intolerant to statins: simvastatin, atorvastatin and crestor, Code(s): E78.5 - Hyperlipidemia, unspecified Category: Medical Plan: Try Nexlizet , continue low-cholesterol diet check lipid profile in 3 months (3) Type 2 diabetes mellitus: Comment: A1C less than 7 Code(s): E11.9 - Type 2 diabetes mellitus without complications Category: Medical Plan: ADA diet regular physical activity discussed with the patient she will have a fasting blood work today. Patient will continue Jardiance and metformin and follow-up in 3 months Orders: Orders XR knee RT 3V Today M25.561 - Pain in right knee PT Evaluation and Treatment Today M25.561 - Pain in right knee Microalbumin, Random (w Creat) 3 Months E11.9 - Type 2 diabetes mellitus without complications, E78.5 - Hyperlipidemia, unspecified, M25.561 - Pain in right knee Vitamin D 25-OH Total 3 Months E11.9 - Type 2 diabetes mellitus without complications, E78.5 - Hyperlipidemia, unspecified, M25.561 - Pain in right knee Vitamin B12 and Folate 3 Months D64.9 - Anemia, unspecified Methylmalonic Acid 3 Months D64.9 - Anemia, unspecified Comprehensive [place]. Panel Fast 3 Months E11.9 - Type 2 diabetes mellitus without complications, E78.5 - Hyperlipidemia, unspecified, M25.561 - Pain in right knee Complete Blood Count Auto Diff 3 Months E11.9 - Type 2 diabetes mellitus without complications, E78.5 - Hyperlipidemia, unspecified, M25.561 - Pain in right knee Lipid Panel 3 Months E11.9 - Type 2 diabetes mellitus without complications, E78.5 - Hyperlipidemia, unspecified, M25.561 - Pain in right knee Medications: New Nexlizet 180-10 mg (bempedoic acid-ezetimibe) 1 tab PO DAILY 90 tabs 3RF NS Discontinued ezetimibe Discontinued Reason: Doctor's Order 10 mg PO DAILY 90 tabs 3RF
== END 2025-04-25 11:31 | disposition home or self-care (01) ==
LOC: HO.HMCC 10:39
PROVIDERS: PCP Internal Medicine; Visit Provider Internal Medicine
DX: M25.561 Pain in right knee (principal); E78.5 Hyperlipidemia, unspecified; E11.9 Type 2 diabetes mellitus without complications